=== PATIENT | male | born 1980 | race Caucasian/White ===

== ENCOUNTER 2016-12-14 00:04 | Emergency (ER) | payer MEDICAID, OTHER ==
[~2016-12-14] VITALS: Ht 175.3 cm; Wt 68.0 kg
[2016-12-14 00:07] VITALS: BP 135/84; PULSE 75; RESP 16; TEMP 97.9; O2SAT 99
[2016-12-14 00:10] VITALS: BP 135/84; PULSE 75; RESP 16; TEMP 97.9; O2SAT 99
--- NOTE | 2016-12-14 01:10 | PD ---
HPI Chief Complaint: Injury Time Seen by Provider: 01:05 Travel History International Travel<30 days: No Contact w/Intl Traveler<30days: No Traveled to known affect area: No History of Present Illness HPI 35-year-old male with history of seizures, presents to the ER today because he was constructing a [employer] and states that a truss had fallen from about 8 feet onto his right lower back and flank area and he felt his knees and is having pain in his lower back area and bilateral knees. He states that he did not hit his head or have any loss of consciousness. He was able to walk on his own after the injury. He denies any other issues. Modifying Factors: None Associated Signs & Symptoms: Truss fell on lower back, bilateral knee injury Risk Factors: None PFSH Past Medical History Neurologic: Yes ([place]) Tetanus Vaccination: < 5 Years Past Surgical History Surgical History: No Previous Surgery Social History Alcohol Use: Yes (RARELY ) Tobacco Use: Yes Substance Use: Yes (MJ) Allergies-Medications (Allergen,Severity, Reaction): Coded Allergies: Hydrocodone (Verified Allergy, Severe, Dizziness, 12/14/16) Iodine (Verified Allergy, Severe, 12/14/16) Toradol (Verified Allergy, Severe, Hypotension, 12/14/16) Tramadol (Verified Allergy, Severe, Cough, 12/14/16) Reported Meds & Prescriptions Reported Meds & Active Scripts Active No Active Prescriptions or Reported Medications Review of Systems Except as stated in HPI: all other systems reviewed are Neg Physical Exam Narrative GENERAL: Well-developed young white male patient currently in moderate distress. Awake and oriented 3. SKIN: Focused skin assessment warm/dry. HEAD: Atraumatic. Normocephalic. EYES: Pupils equal and round. No scleral icterus. No injection or drainage. ENT: No nasal bleeding or discharge. Mucous membranes pink and moist. NECK: Trachea midline. No JVD. CARDIOVASCULAR: Regular rate and rhythm. No murmur appreciated. RESPIRATORY: No accessory muscle use. Clear to auscultation. Breath sounds equal bilaterally. GASTROINTESTINAL: Abdomen soft, non-tender, nondistended. Hepatic and splenic margins not palpable. BACK: No CVA tenderness. No rash. No point tenderness on palpation of the spine. There is notable right flank area abrasion. Mildly tender to palpation. Pelvis: Stable and nontender to palpation. EXTREMITIES: No clubbing, cyanosis, or edema. No joint tenderness, effusion, or edema noted. Abrasions to bilateral knees with mild tenderness to palpation of the right posterior knee. MUSCULOSKELETAL: No obvious deformities. No clubbing. No cyanosis. No edema. NEUROLOGICAL: Awake and alert. No obvious cranial nerve deficits. Motor grossly within normal limits. Normal speech. PSYCHIATRIC: Appropriate mood and affect; insight and judgment normal. Data Data Last Documented VS Vital Signs Date Time Temp Pulse Resp B/P Pulse Ox O2 Delivery O2 Flow Rate FiO2 12/14/16 00:10 97.9 75 16 135/[address] Lumb Spine W/O Contrast (12/14/16 01:05) Iv Access Insert/Monitor (12/14/16 01:05) Ecg Monitoring (12/14/16 01:05) Oximetry (12/14/16 01:05) Oxygen Administration (12/14/16 01:05) Sodium Chloride 0.9% Flush (Ns Flush) (12/14/16 01:15) Knee, Complete (4vws) (12/14/16 01:05) Knee, Complete (4vws) (12/14/16 01:05) Ct Pelvis W/O Iv Contrast (12/14/16 ) Morphine Inj (Morphine Inj) (12/14/16 01:30) Ondansetron Inj (Zofran Inj) (12/14/16 01:30) MDM Medical Decision Making Medical Screen Exam Complete: Yes Emergency Medical Condition: Yes Medical Record Reviewed: Yes Interpretation(s) Last [address] 12/14/16104 Signed Impressions: Service Date/Time: Wednesday, December 14, 2016 01:37 - CONCLUSION: 1. No fracture or subluxation of the lumbar spine. 2. Mild multilevel degenerative changes as above. 3. Incidentally seen nonobstructing stones of the left kidney. Right renal pelvis. No acute abnormality seen of the visualized soft tissues. Brock Renee MD Knee X-Ray 12/14/16104 Signed Impressions: Service Date/Time: Wednesday, December 14, 2016 01:30 - CONCLUSION: Intact right knee. Brock Renee MD Knee X-Ray 12/14/16104 Signed Impressions: Service Date/Time: Wednesday, December 14, 2016 01:25 - CONCLUSION: Radiographic appearance of the left knee is within normal limits. No fracture. Brock Renee MD Differential Diagnosis Truss fell on patient, lower back injury, knee injuriescontusions versus fractures Narrative Course Patient was given IV morphine for pain. He does not have any major acute fractures or other significant injuries on x-rays and CAT scans. At this point , it appears that he has a contusion to the area and plan would be to release him with symptomatic relief or pain. Return for new issues as needed. The plan has been discussed with him and he states understanding. Diagnosis Primary Impression: Back contusion Additional Impression: Knee contusion Med/Other Pt SpecificInfo: Prescription(s) given Scripts Cyclobenzaprine (Flexeril)10 Mg Tab10 Mg PO TID #15 TAB Ref 0 Prov:Jhonny Gomez MD 12/14/16 Ibuprofen (Motrin Ib)200 Mg Brrxog814 Mg PO QID PRN (PAIN SCALE 1 TO 10) #21 Prov:Jhonny Gomez MD 12/14/16 Disposition: DISCHARGE HOME Condition: Stable Jhonny Gomez MD Dec 14, 2016 01:10
[2016-12-14] MEDS ORDERED: SODIUM CHLORIDE 0.9% FLUSH 10 ML FLUSH IVF PRN (01:15)
[2016-12-14] MEDS ORDERED: ONDANSETRON HCL 4 MG/2 ML VIAL IV PUSH ONE (01:30)
[2016-12-14] MEDS ORDERED: MORPHINE SULFATE 4 MG/ML INJ IV PUSH ONE (01:30)
--- NOTE | 2016-12-14 01:44 | RADRPT ---
EXAM DATE/TIME: 12/14/2016 01:25 [facility] COMPARISON: No previous studies available for comparison. INDICATIONS : Left knee pain. MEDICAL HISTORY : None. SURGICAL HISTORY : None. ENCOUNTER: Initial ACUITY: 1 day PAIN SCORE: 4/10 LOCATION: Left knee. FINDINGS: Four view examination of the left knee demonstrates no evidence of fracture or dislocation. Bony min eralization is normal. The articular surfaces are intact. The suprapatellar soft tissues have a nor mal configuration. CONCLUSION: Radiographic appearance of the left knee is within normal limits. No fracture. Brock Renee MD on December 14, 2016 at 1:43 Board Certified Radiologist. This report was verified electronically.
--- NOTE | 2016-12-14 01:45 | RADRPT ---
EXAM DATE/TIME: 12/14/2016 01:30 [facility] COMPARISON: No previous studies available for comparison. INDICATIONS : Right knee pain. MEDICAL HISTORY : None. SURGICAL HISTORY : None. ENCOUNTER: Initial ACUITY: 1 day PAIN SCORE: 4/10 LOCATION: Right knee. FINDINGS: Four view examination of the right knee demonstrates no evidence of fracture or dislocation. Bony mi neralization is normal. The articular surfaces are intact. The suprapatellar soft tissues have a no rmal configuration. CONCLUSION: Intact right knee. Brock Renee MD on December 14, 2016 at 1:43 Board Certified Radiologist. This report was verified electronically.
--- NOTE | 2016-12-14 02:02 | RADRPT ---
EXAM DATE/TIME: 12/14/2016 01:37 [facility] COMPARISON: No previous studies available for comparison. INDICATIONS : 300lb roof fell on back. RADIATION DOSE: 35.86 CTDIvol (mGy) MEDICAL HISTORY : None SURGICAL HISTORY : None. ENCOUNTER: Initial ACUITY: 1 day PAIN SCALE: 10/10 LOCATION: lumbar TECHNIQUE: Volumetric scanning of the lumbar spine was performed. Multiplanar reconstructions in the sagittal, coronal and oblique axial planes were performed. Using automated exposure control and adjustment of the mA and/or kV according to patient size, radiation dose was kept as low as reasonably achievable t o obtain optimal diagnostic quality images. FINDINGS: Lumbar spine alignment is normal. No fracture. Vertebral bodies have normal height. Mild, chronic Schmorl's node changes are seen, primarily T11/T12, T12/L1, L1/L2 and L3/L4. Small, broad posterior disc protrusions with mild loss of height seen at each level, L3/L4, L4/L5 and L5/S1. No significant foraminal or spinal stenosis demonstrated. Several small nonobstructing stones seen of the lower pole of the left kidney, measuring up to 2 x 4 mm in size. The right kidney is located in the pelvic cavity. CONCLUSION: 1. No fracture or subluxation of the lumbar spine. 2. Mild multilevel degenerative changes as above. 3. Incidentally seen nonobstructing stones of the left kidney. Right renal pelvis. No acute abnormali ty seen of the visualized soft tissues. Brock Renee MD on December 14, 2016 at 1:58 Board Certified Radiologist. This report was verified electronically.
--- NOTE | 2016-12-14 02:05 | RADRPT ---
EXAM DATE/TIME: 12/14/2016 01:37 [facility] COMPARISON: No previous studies available for comparison. INDICATIONS : 300lb roof fell on back. ORAL CONTRAST: No oral contrast ingested. RADIATION DOSE: 10.36 CTDIvol (mGy) MEDICAL HISTORY : None SURGICAL HISTORY : None. ENCOUNTER: Initial ACUITY: 1 day PAIN SCALE: 10/10 LOCATION: pelvis TECHNIQUE: Volumetric scanning of the pelvis was performed. Using automated exposure control and adjustment of the mA and/or kV according to patient size, radiation dose was kept as low as reasonably achievable t o obtain optimal diagnostic quality images. FINDINGS: The bony pelvis is intact and has normal morphology. No subluxation of either hip. There are early/mi ld bilateral hip degenerative changes and suspected cam impingement. No fluid or hematoma seen in the pelvic cavity were visualized soft tissues. Incidentally seen pelvic location of the right kidney. CONCLUSION: Intact pelvis. 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 Brock Renee MD on December 14, 2016 at 2:02 Board Certified Radiologist. This report was verified electronically.
[2016-12-14] MEDS ORDERED: IBUP-1129 PO (02:14)
[2016-12-14] MEDS ORDERED: CYCL1TAB29 PO (02:14)
[2016-12-14 02:20] VITALS: O2SAT 98
[2016-12-14 02:33] VITALS: BP 128/78
== END 2016-12-14 02:45 | disposition home or self-care (01) ==
LOC: NEPC 00:04
DX: S30.0XXA Contusion of lower back and pelvis, initial encounter (principal); S80.02XA Contusion of left knee, initial encounter; S30.811A Abrasion of abdominal wall, initial encounter; N20.0 Calculus of kidney; R56.9 Unspecified convulsions; Z72.0 Tobacco use; W20.8XXA Other cause of strike by thrown, projected or falling object, initial encounter
CPT/HCPCS: 72131; 72192; 73564; 96374; 96375; 99285; J2270; J2405